=== PATIENT | female | born 1955 | race Caucasian/White ===

== ENCOUNTER → 2017-01-25 | Outpatient (CLI) | payer OTHER ==
[~2017-01-25] MED LIST: GADOBUTROL 10 ML VIAL IVP ONE
== END ==
LOC: FIMAGING 09:58
PROVIDERS: ATTEND Obstetrics & Gynecology
DX: Z12.39 Encounter for other screening for malignant neoplasm of breast (principal); N63 Unspecified lump in breast
CPT/HCPCS: 0159T; A9585; C8908

== ENCOUNTER → 2017-02-05 | Outpatient (CLI) | payer OTHER | LOC: FIMAGING 14:34 | PROVIDERS: ATTEND Obstetrics & Gynecology | DX: Z12.39 Encounter for other screening for malignant neoplasm of breast (principal); R92.2 Inconclusive mammogram | CPT/HCPCS: G0206 ==

== ENCOUNTER → 2017-02-18 | Outpatient (CLI) | payer OTHER ==
[~2017-02-18] MED LIST changes: +BUPIVACAINE 0.25% 30 ML SDV ONE; +LIDOCAINE 1% 5 ML SDV ONE; +MIDAZOLAM 2 MG/2 ML VIAL ONE; +NA BICARBONATE 50 MEQ/50 ML VIAL ONE; +fentaNYL 100 MCG/2 ML INJ ONE
== END ==
LOC: FIMAGING 08:12
PROVIDERS: ATTEND Obstetrics & Gynecology
PROC: 0HBT3ZX Excision of Right Breast, Percutaneous Approach, Diagnostic (ICD-10-PCS; principal; 2017-02-18)
DX: R92.8 Other abnormal and inconclusive findings on diagnostic imaging of breast (principal); Z80.3 Family history of malignant neoplasm of breast
CPT/HCPCS: A9585; J2250; J3010

== ENCOUNTER → 2017-03-02 | Outpatient (CLI) | payer OTHER | LOC: FIMAGING 10:32 | PROVIDERS: ATTEND Midwife | DX: L76.82 Other postprocedural complications of skin and subcutaneous tissue (principal) ==

== ENCOUNTER → 2017-05-31 | Outpatient (CLI) | payer OTHER | LOC: FIMAGING 11:44 | PROVIDERS: ATTEND Internal Medicine | DX: Z13.820 Encounter for screening for osteoporosis (principal); M81.0 Age-related osteoporosis without current pathological fracture; M85.80 Other specified disorders of bone density and structure, unspecified site; Z78.0 Asymptomatic menopausal state; Z82.62 Family history of osteoporosis ==

== ENCOUNTER → 2018-04-04 | Outpatient (CLI) | payer OTHER ==
[~2018-04-04] MED LIST changes: -BUPIVACAINE 0.25% 30 ML SDV ONE; -LIDOCAINE 1% 5 ML SDV ONE; -MIDAZOLAM 2 MG/2 ML VIAL ONE; -NA BICARBONATE 50 MEQ/50 ML VIAL ONE; -fentaNYL 100 MCG/2 ML INJ ONE
== END ==
LOC: FIMAGING 13:10
PROVIDERS: ATTEND Obstetrics & Gynecology
DX: Z80.3 Family history of malignant neoplasm of breast (principal)
CPT/HCPCS: 0159T; A9585; C8908

== ENCOUNTER → 2018-06-22 | Outpatient (CLI) | payer OTHER | LOC: FIMAGING 16:09 | PROVIDERS: ATTEND Radiology Diagnostic Radiology | DX: I83.93 Asymptomatic varicose veins of bilateral lower extremities (principal) ==